=== PATIENT | female | born 1990 | race Caucasian/White ===

== ENCOUNTER 2018-07-20 15:35 | Emergency (ER) | payer OTHER ==
[2018-07-20 16:18] VITALS: BMI 26.9
[2018-07-20 17:19] LABS: SQUAMOUS EPITHIAL 5 /hpf (0-5); URINE BACTERIA OCC (<OCC); URINE BILIRUBIN NEGATIVE (NEGATIVE); URINE BLOOD NEGATIVE (NEGATIVE); URINE CLARITY Clear (Clear); URINE COLOR Yellow (YELLOW); URINE GLUCOSE (UA) NORMAL (Normal); URINE LEUKOCYTE ESTERASE NEG Leu/uL (Negative); URINE PROTEIN NEGATIVE (NEGATIVE); URINE UROBILINOGEN NORMAL mg/dL (0.2-1.0)
--- NOTE | 2018-07-20 18:07 | US ---
Date of service: 2018-07-20 17:14:17 Indication: decreased movement Comparison: None available Technique: OB limited/biophysical profile Findings: There is a single living fetus in cephalic presentation. Amniotic fluid volume is within normal limits. Anterior placenta. The placenta is not previa. There are no adnexal masses or cysts evident. Cervix length measures approximately 3.4 cm. The study was performed for the emergent evaluation of decreased movement, and the whole anatomic survey of the fetus was not performed. Measurements and calculations: Fetus has a composite sonographic age of 34 weeks 3 days. This calculation is based on the biparietal diameter, head circumference, abdominal circumference, and femur length. Estimated heart rate 142.5 beats per min. Estimated weight 2483 g. Biophysical profile: movements 2/2 breathing 2/2 tone 2/2 Amniotic fluid 2/2 Total score impression: 11/18 Impression: Live single intrauterine with estimated gestational age 34 weeks 3 days. heart rate 142.5 bpm. Biophysical profile of 8 out of 8.
--- NOTE | 2018-07-20 21:08 | OBHP ---
Datetime: 07/20/2018 16:10 IP Adm Impression: , intrauterine ; No Active Labor; Intact Membranes IP Admit Plan: Observation/Evaluation Admit Comment, IP Provider: Kristi Salcedo Birth Certificate Clerk: Mini [id number] 27 year old at 34.2 weeks by ultrasound presents to OB ED complaining of decreased m ovement for 2 days. Patient states her baby has been moving "slow" since yesterday. She denies vagina l bleeding, water leakage, and contractions. Patient notes that 2 days ago, she also had centralized upper abdominal pain and vomiting which felt like she ate bad food. However the pain and vomiting is fully resolved. Denies current pain, fevers, chills, nausea, vomiting, diarrhea. Today so far she augustine nk 4 cups of water. Patient admits to nausea and vomiting at the beginning of this at 3-4 months gestational age. It resolved with some rx medications. She has never felt this decreased movement and symp toms explained above until now. Patient denies trauma or doing anything different from her routine li fe recently. Patient sees Dr. Rodriguez for care. Last seen 2 weeks ago. Patient will be seen in 2 days. OB hx: --11/17/10 CS, 7 y/o female. Full term. CS due to umbilical cord placement around the baby. -- due to fetus with a mass last year at end of first trimester. 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 Menarche at 15 y/o, periods monthly lasting 4 days. PMHx: patient thinks she is anemic, otherwise denies any other known PMHx. PSHx: denies FHx: denies SocHx: Denies EtOH, tobacco, and illicit drug use now and in the past. Patient is currently unempl oyed. Meds: PNV, Iron, Vitamin C All: NKDA vitals and physical exam: see above 27 year old at 34.2 weeks by ultrasound with decreased movement -NST reactive -BPP pending -UA pending case discussed with Dr. Navid Manley PGY1 Pt seen and examined with Dr. Manley and agree with her findings and POC Pelvic Type - PN: Not Done Extremities - PN: Normal Abdomen - PN: Normal Back - PN: Not Done Breast - PN: Not Done Lungs - PN: Normal Heart - PN: Normal Thyroid - PN: Not Done Neurologic - PN: Not Done HEENT - PN: Not Done General - PN: Normal FHR - Baseline A Provider: 135 Comments, ACOG Physical Exam: gravid uterus with fundal height of 35 cm IP Hx Assessment: The History has been Reviewed and is Current EGA AdmitDate IP: 34.2 Vital Signs Provider: Reviewed; Within Normal Limits IP Chief Complaint: Decreased movement NICHD Variability Prov Fetus A: Moderate 6-25bpm NICHD Accel Fetus A IP Provider: 15X15 FHR Category Provider Fetus A: Category I NICHD Decel Fetus A IP Provider: None DTRs - PN: Not Done
--- NOTE | 2018-07-20 21:21 | OBDCSUM ---
Datetime: 07/20/2018 19:08 Discharged to, Provider: Home Follow up at, Provider: NATALYA MERINO Disch Instr Activity: Normal activity Disch Instr Diet: Regular Discharge Instructions, Provider: Routine instructions given Discharge Time: 07/20/2018 19:09 Follow up in weeks, Provider: 07/22/18 Disch Referrals: None Contraception discussed, Prov: Yes Disch Activity Restrictions: No exercising; No lifting; Minimize stair-climbing; No sexual activity; Nothing in vagina - [employer], tampons, douche Discharge Comment, Provider: 27 year old at 34.2 weeks by ultrasound with decreased mo vement -NST reactive. + movement noted and palpated -BPP 8of8 -UA Clean and negative -No contractions -Stable and Satisfactory condition -Discharge home with instructions to do Kick Count at home and will follow with her OB. Copies of US and UA given to bring to her clinic appointment. case discussed with Dr. Navid Manley PGY1 Pt seen and examined with Dr. Manley and agree with her findings and POC Comunicated with patient via deaf interpreter Matias with ID No. [id number] Discharge Diagnosis Prov Other: Decreased Movement Contraception after Delivery: Undecided
[2018-07-21 00:12] VITALS: BP 90/43; PULSE 100; RESP 20; TEMP 97.3; O2SAT 100
== END 2018-07-20 19:13 | disposition home or self-care (01) ==
LOC: C.EROB 15:35
DX: O36.8130 Decreased fetal movements, third trimester, not applicable or unspecified (principal); Z3A.34 34 weeks gestation of pregnancy

== ENCOUNTER 2018-07-23 14:10 | Outpatient (CLI) | payer OTHER | END 2018-07-23 14:11 | disposition home or self-care (01) | LOC: C.LAB 14:10 | DX: Z34.93 Encounter for supervision of normal pregnancy, unspecified, third trimester (principal) ==

== ENCOUNTER 2018-08-17 07:11 | Inpatient (IN) | payer MEDICAID, SELFPAY ==
[2018-08-17 07:20] VITALS: BMI 31.1
[2018-08-17] MEDS ORDERED: Lactated Ringer's 1,000 ML IV ONE (07:20)
[2018-08-17] MEDS ORDERED: cefOXitin IV 2 gm in Dextrose 2 GM/50 ML BAG IVPB ONE ×2 (07:21→07:52)
[2018-08-17] MEDS ORDERED: Sodium Citrate/Citric Acid 15 ml Sol PO ONE (07:21)
[2018-08-17] MEDS ORDERED: Sodium Citrate/Citric Acid 15 ml Sol ONE (07:51)
[2018-08-17 08:04] LABS: BASO % 0.3 % (0.0-2.0); EOS # 0.2 K/uL (0.0-0.7); EOS % 1.6 % (0.0-4.0); HEMOGLOBIN 10.4 g/dL (11.0-16.0); LYMPH # 2.3 K/uL (1.0-4.3); LYMPH % 20.3 % (20.0-40.0); MEAN CELL VOLUME 82.3 fL (81.0-99.0); MEAN CORPUSCULAR HGB CONC 32.8 g/dL (33.0-37.0); MEAN PLATELET VOLUME 9.2 fL (7.2-11.7); MONO # 0.9 K/uL (0.0-0.8); MONO % 8.1 % (0.0-10.0); NEUT # 7.8 K/uL (1.8-7.0); NEUT % 69.7 % (50.0-75.0); NRBC % 0.1 % (0.0-2.0); RBC 3.84 Mil/uL (3.80-5.20); RED CELL DISTRIBUTION WIDTH 18.4 % (11.5-14.5); WHITE BLOOD COUNT 11.1 K/uL (4.8-10.8)
[2018-08-17 08:15] LABS: SQUAMOUS EPITHIAL 11 /hpf (0-5); URINE BILIRUBIN NEGATIVE (NEGATIVE); URINE BLOOD NEGATIVE (NEGATIVE); URINE CLARITY Hazy (Clear); URINE COLOR Amber (YELLOW); URINE GLUCOSE (UA) NORMAL (Normal); URINE LEUKOCYTE ESTERASE NEG Leu/uL (Negative); URINE PROTEIN NEGATIVE (NEGATIVE); URINE UROBILINOGEN NORMAL mg/dL (0.2-1.0)
[2018-08-17] MEDS ORDERED: Oxytocin 20 units in LR 2,000 ML IV ONE (08:18)
[2018-08-17] MEDS ORDERED: Lactated Ringer's 1,000 ML IV SCH (08:30)
[2018-08-17 08:34] LABS: ALB/GLOB RATIO 1.1 (1.0-2.1); ALBUMIN 3.6 g/dL (3.5-5.0); ALT/SGPT 12 U/L (9-52); AST/SGOT 19 U/L (14-36); BLOOD UREA NITROGEN 4 mg/dL (7-17); CALCIUM 9.1 mg/dl (8.6-10.4); GFR NON-AFRICAN AMERICAN > 60
[2018-08-17] MEDS ORDERED: Morphine 1 mg/ml preservative-free Inj(Duramorph) ONE (08:34)
[2018-08-17] MEDS ORDERED: ePHEDrine 50 mg/ml Inj ONE (09:02)
[2018-08-17] MEDS ORDERED: Oxytocin 10 Units/ml Inj ONE ×2 (09:05→10:02)
--- NOTE | 2018-08-17 10:20 | OBDS ---
DELIVERY PERSONNEL Delivery Doctor: Mike Shoemaker DO Scrub Nurse: Minda Ribera OBT Conservation Worker: ISAI conde Anesthesiologist: Max Lawrence MD Resident: Dr Emery MATERNAL INFORMATION Delivery Anesthesia: Spinal Medications in Delivery: pitocin Estimated Blood Loss (ml): 600 Placenta Cultured: No Maternal Complications: None Provider Comments: Repeat LTC C/S with delivery of a viable Male from MARLYN position and witho ut complications. Apgars 9_9 in 1 and 5 minutes repectively and BW 7lbs, 6oz. Cord Blood and Cord Ph were obtzined and sent. Placenta eith 3 vessel cord was Manually delivered and discarded. EBL 600 mls Bilateral atubes and ovaries within normal limits. Pt and tolerated the procedure well and both left the OR in Stable and Satisfactory condit ion. Dr Soliman assisted throughout the procedure as well as Dr. Emery, 2nd [address] Resident[address] Dr. Hackett attended the LABOR SUMMARY EDC: 08/29/2018 00:00 No. Babies in Womb: 1 Attempted: No Labor Anesthesia: None LABOR INFORMATION Other Ripening Agents: n/a Oxytocin: N/A Group B Beta Strep: Negative Steroids Given: None Reason Steroids Not Administered: Not Applicable MEMBRANES Membranes Rupture Method: Artificial Rupture of Membranes: 08/17/2018 08:59 Length of Rupture (hrs): 0.02 Amniotic Fluid Color: Clear Amniotic Fluid Amount: Moderate STAGES OF LABOR Stage 3 hrs: 0 Stage 3 min: 2 CSECTION DELIVERY Primary Indication: previous c/s Other Primary Indication: early labor CSection Urgency: Non Elective CSection Incidence: Repeat Labor: Labor Elective: Nonelective CSection Incision: Lower Uterine Transverse BABY A INFORMATION Infant Delivery Date/Time: 08/17/2018 09:00 Method of Delivery: Born in Route : No : N/A Forceps: N/A Vacuum Extraction: N/A Shoulder Dystocia : No SHOULDER DYSTOCIA BABY A Infant Delivery Date/Time: 08/17/2018 09:00 PRESENTATION/POSITION BABY A Presentation: Cephalic Cephalic Presentation: Vertex Vertex Position: Left Occipital Anterior Breech Presentation: N/A PLACENTA INFORMATION BABY A Placenta Delivery Time : 08/17/2018 09:02 Placenta Method of Delivery: Manual Removal Placenta Status: Delivered SCORES BABY A Heart Rate 1 min: >100 bpm Resp Effort 1 min: Good Cry Reflex Irritability 1 min: Cough or Sneeze or Pulls Away Muscle Tone 1 min: Active Motion Color 1 min: Body Gorman, Extremities Blue Resuscitation Effort 1 min: Tactile Stimulation SCORE 1 MIN: 9 Heart Rate 5 min: >100 bpm Resp Effort 5 min: Good Cry Reflex Irritability 5 min: Cough or Sneeze or Pulls Away Muscle Tone 5 min: Active Motion Color 5 min: Body Gorman, Extremities Blue Resuscitation Effort 5 min: Tactile Stimulation SCORE 5 MIN: 9 INFANT INFORMATION BABY A Gestational Age at Delivery: 38.3 Gestational Status: Term Infant Outcome : Liveborn Infant Condition : Stable Sex: Male IDENTIFICATION/MEDS BABY A ID Band Number: [id number] ID Band Location: Left Leg; Left Arm Sensor Applied: Yes Sensor Number: [id number] Sensor Location : Cord Clamp Vitamin K Given : Not Given Erythromycin Given: Not Given WEIGHT/LENGTH BABY A Infant Birthweight (gms): 3335 Weight (lb): 7 Weight (oz): 6 Infant Length Inches: 19.50 Infant Length cms: 49.5 CORD INFORMATION BABY A No. Cord Vessels: 3 Nuchal Cord : N/A Cord Blood Taken: Yes Infant Suction: Mouth; Nose ASSESSMENT BABY A Infant Complications: None Physical Findings at Delivery: Within Normal Limits Respirations: Appears Normal Medical Services Manager/ALS Called : No Care By: DR Hackett Transferred To: Remains with Mother
--- NOTE | 2018-08-17 10:27 | OBADHP ---
Datetime: 08/17/2018 08:14 Admit Comment, IP Provider: Patient is a 28 year old at 38w3d by 17w5d US not consistent wit h LMP who presents to the unit for evaluation. Patient reports having abdominal tightness that is int ermittent in nature. Tightness is located at the top of her abdomen. She endorses +FM, denies VB or L OF. She goes to [facility] for care., and PNC record was reviewed. Issues: Anemia in - on Iron PO BID, Vitamin C 500mg PO BID OB Hx: 1. 2010 PLTCD indication unknown, female , 3.5kg, no complications 2. IAB 3. Current and uneventful except for Anemia. 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: LMP 12/10/17 [facility] 14 x regular x 4 days Denies fibroids, STIs, ovarian cysts Denies history of abnormal pap Allergies: NKDA Medications: Iron, Vitamin C, PNV Medical History: Anemia Surgical History: C/S x 1 Social History: Denies alcohol, tobacco, drug use Family History: Mother - healthy; Father - PE: See above A/P: Patient is a 28 year old at 38w3d, previous C/S x 1 in early labor -Admit to unit for repeat C/S -Admission labs: CBC, CMP, T+S, UA, RPR -Lactated Ringers -Diet: NPO -Cefoxitin 2gm, bicitra, pepcid preoperatively -Anesthesia and surgcial assist notified -Patient consented for C/S, does not desire BTL -Plan discussed with Dr Navid Emery DO PGY-2 Pt seen and examined with Dr. Emery and Medical Student Florence Silva MS III and their findings and POC was fully reviewed with them and agreed on. Pelvic Type - PN: Adequate Extremities - PN: Normal Abdomen - PN: Normal Back - PN: Normal Breast - PN: Not Done Lungs - PN: Normal Heart - PN: Normal Thyroid - PN: Normal Neurologic - PN: Normal HEENT - PN: Normal General - PN: Normal Presentation-Admit: Vertex FHR - Baseline A Provider: 140 Membranes, Provider: Intact Contraction Comments Provider: q3-6 min Comments, ACOG Physical Exam: Gen: AAOx3 CV: RRR Lungs: CTA B/L Abd: Soft, Gravid, Fundal height 39cm Ext: No clubbing, cyanosis, edema, no calf tenderness Gestation - Est Wks by US: 38.2 IP Hx Assessment: The History has been Reviewed and is Current Vital Signs Provider: Reviewed; Within Normal Limits IP Chief Complaint: Uterine contractions NICHD Variability Prov Fetus A: Moderate 6-25bpm NICHD Accel Fetus A IP Provider: 15X15 FHR Category Provider Fetus A: Category I NICHD Decel Fetus A IP Provider: None Genitourinary Exam: Normal DTRs - PN: Normal EGA AdmitDate IP: 38.2 IP Adm Impression: Term, intrauterine IP Admit Plan: Admit to unit; Initiate Section protocol
--- NOTE | 2018-08-17 10:51 | OBHP ---
Datetime: 08/17/2018 08:14 IP Adm Impression: Term, intrauterine IP Admit Plan: Admit to unit; Initiate Section protocol Admit Comment, IP Provider: Patient is a 28 year old at 38w3d by 17w5d US not consistent wit h LMP who presents to the unit for evaluation. Patient reports having abdominal tightness that is int ermittent in nature. Tightness is located at the top of her abdomen. She endorses +FM, denies VB or L OF. She goes to [facility] for care., and PNC record was reviewed. Issues: Anemia in - on Iron PO BID, Vitamin C 500mg PO BID OB Hx: . 2010 PLTCD indication unknown, female , 3.5kg, no complications 2. IAB 3. Current and uneventful except for Anemia. 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 [facility] 14 x regular x 4 days Denies fibroids, STIs, ovarian cysts Denies history of abnormal pap Allergies: NKDA Medications: Iron, Vitamin C, PNV Medical History: Anemia Surgical History: C/S x 1 Social History: Denies alcohol, tobacco, drug use Family History: Mother - healthy; Father - PE: See above A/P: Patient is a 28 year old at 38w3d, previous C/S x 1 in early labor -Admit to unit for repeat C/S -Admission labs: CBC, CMP, T+S, UA, RPR -Lactated Ringers -Diet: NPO -Cefoxitin 2gm, bicitra, pepcid preoperatively -Anesthesia and surgcial assist notified -Patient consented for C/S, does not desire BTL -Plan discussed with Dr Navid Emery DO PGY-2 Pt seen and examined with Dr. Emery and Medical Student Florence Silva MS III and their findings and POC was fully reviewed with them and agreed on. Pelvic Type - PN: Adequate Extremities - PN: Normal Abdomen - PN: Normal Back - PN: Normal Breast - PN: Not Done Lungs - PN: Normal Heart - PN: Normal Thyroid - PN: Normal Neurologic - PN: Normal HEENT - PN: Normal General - PN: Normal Presentation-Admit: Vertex FHR - Baseline A Provider: 140 Membranes, Provider: Intact Contraction Comments Provider: q3-6 min Comments, ACOG Physical Exam: Gen: AAOx3 CV: RRR Lungs: CTA B/L Abd: Soft, Gravid, Fundal height 39cm Ext: No clubbing, cyanosis, edema, no calf tenderness Gestation - Est Wks by US: 38.2 IP Hx Assessment: The History has been Reviewed and is Current EGA AdmitDate IP: 38.2 Vital Signs Provider: Reviewed; Within Normal Limits IP Indication for Induction: Not Applicable IP Chief Complaint: Uterine contractions NICHD Variability Prov Fetus A: Moderate 6-25bpm NICHD Accel Fetus A IP Provider: 15X15 FHR Category Provider Fetus A: Category I NICHD Decel Fetus A IP Provider: None Genitourinary Exam: Normal DTRs - PN: Normal (Annotations: Data stored by CPN on behalf of user)
[2018-08-17] MEDS: Prenatal Multivit/Folic Acid/Iron Tab PO SCH (17:21)
[2018-08-17] MEDS: Simethicone 80 mg Chewtab PO SCH ×3 (17:21→21:28)
[2018-08-18 07:46] LABS: HEMOGLOBIN 9.1 g/dL (11.0-16.0); MEAN CELL VOLUME 82.2 fL (81.0-99.0); MEAN CORPUSCULAR HEMOGLOBIN 27.3 pg (27.0-31.0); MEAN CORPUSCULAR HGB CONC 33.2 g/dL (33.0-37.0); MEAN PLATELET VOLUME 8.9 fL (7.2-11.7); RBC 3.32 Mil/uL (3.80-5.20); RED CELL DISTRIBUTION WIDTH 17.9 % (11.5-14.5); WHITE BLOOD COUNT 16.4 K/uL (4.8-10.8)
[2018-08-18] MEDS: Simethicone 80 mg Chewtab PO SCH ×4 (09:12→22:50)
[2018-08-18] MEDS: Prenatal Multivit/Folic Acid/Iron Tab PO SCH (09:12)
[2018-08-18] MEDS ORDERED: Bisacodyl 5mg EC Tab PO ONE (09:49)
[2018-08-18] MEDS: Oxycodone/Acetaminophen 5/325 mg Tab PO PRN ×2 (12:54→17:02)
--- NOTE | 2018-08-18 18:05 | OBPPN ---
Datetime: 08/18/2018 12:04 PP Pain Prov: Within normal limits PP Nausea Prov: Denies PP Flatus Prov: No PP BM Prov: No PP Breasts Prov: Not Done PP Heart Prov: Normal PP Lungs Prov: Normal PP Abdomen/Uterus Prov: Normal PP Lochia Prov: Normal PP Vulva/Perineum Prov: Normal PP CVA Tenderness Prov: Normal PP Extremities Prov: Normal PP C/S Incision Prov: Normal PP Progress Prov: Normal PP Comments Phys Exam Prov: Fundus firm, non-tender and below umbiicus Incision clean, dry and intact PP Impression Prov: Normal progression PP Plan Prov: Continue present management PP Progress Note Prov: Pt seen and examined at bedside. No complaints over night per nurse. Pt repor ts abdominal pain of 4/10 Exacerbated by walking. Reports urination, but denies flatus and BM. She re ports minimal lochia, stating that the nurse changed her pad twice since last night. Pt is attempting 3-4 time a day for 10-15 minutes, but states that she has been mostly breast feeding. Pt is eating well and drinking 1-2 pitchers of water per day. Denies fever, chills, RODRIGUEZ, vision flanagan es, CP, SOB, abd pain, and LE swelling. Vitals:Stable: T: 97 BP: 91/63 HR: 88 RR:18 PE General: NAD, Well appearing Cardiac: Nml S1,S2, No murmers Lungs: CTL, No wheezes,rales, or rhonci Abd: Soft, Lower abdomen tender to palpation, Fundal height: 2 fingers below the umbillicus, Incis ion: Well aproximated, dry, clean and intact. No drainage. LE:No edema bilat, 2+ pulses intact bilat A/P Continue current medication management Pain:continue ibuprofen and percocet as needed Anemia: continue taking Iron as prescribed Pt desires circumciison for her baby, informed consent signed after discussion of procedure, risks and possible complications, all of her questions were answered to her full satisfaction and requeste d to proceed. Encourage breast feeding, ambulation, and hydration Stable and Satisfactory condition and recovery Advance care Florence Oyewole OMS, III Pt seen and examined with Med Student Oyewole and all of her findings and POC were fully discussed with her and agreed with. IP PP Procedures: None
[2018-08-19 08:34] LABS: BASO # 0.1 K/uL (0.0-0.2); BASO % 0.4 % (0.0-2.0); EOS # 0.2 K/uL (0.0-0.7); EOS % 1.9 % (0.0-4.0); HEMOGLOBIN 9.2 g/dL (11.0-16.0); LYMPH # 2.3 K/uL (1.0-4.3); MEAN CELL VOLUME 83.8 fL (81.0-99.0); MEAN CORPUSCULAR HGB CONC 32.2 g/dL (33.0-37.0); MEAN PLATELET VOLUME 8.6 fL (7.2-11.7); NEUT # 9.3 K/uL (1.8-7.0); NEUT % 71.7 % (50.0-75.0); RBC 3.42 Mil/uL (3.80-5.20); RED CELL DISTRIBUTION WIDTH 17.9 % (11.5-14.5)
[2018-08-19] MEDS: Simethicone 80 mg Chewtab PO SCH ×4 (10:31→22:21)
[2018-08-19] MEDS: Prenatal Multivit/Folic Acid/Iron Tab PO SCH (10:31)
--- NOTE | 2018-08-19 15:16 | OBPPN ---
Datetime: 08/19/2018 11:04 PP Pain Prov: Within normal limits PP Nausea Prov: Denies PP Flatus Prov: Yes PP BM Prov: Yes PP Heart Prov: Normal PP Lungs Prov: Normal PP Abdomen/Uterus Prov: Normal PP Lochia Prov: Normal PP Vulva/Perineum Prov: Not Done PP CVA Tenderness Prov: Normal PP Extremities Prov: Normal PP C/S Incision Prov: Normal PP Progress Prov: Normal PP Comments Phys Exam Prov: incision site clean, dry, intact fundal heigh 2 fingers below umbilici PP Impression Prov: Normal progression PP Plan Prov: Continue present management PP Progress Note Prov: Pt seen and examined at bedside. No overnight events reported. Pt reports 5/1 0 abdominal pain on ambulation. Reports urination, flatulance and bowel movement. Patient reports m inimal vaginal bleeding, requring approximately 1 pad in 24 hours. Pt is still attempting breastfeedi ng; however reports difficulty latching by the baby. Pt is attempting 3-4 time a day fo r 10-15 minutes, but states that she has been mostly breast feeding. Pt is eating well and drinking 3 -4 pitchers per day. Denies fever, chills, RODRIGUEZ, vision changes, CP, SOB, abd pain, and LE swelling. Vitals:Stable: T: 97.4 BP: 122/89 HR: 76 RR:18 PE General: NAD, Well appearing Cardiac: Nml S1,S2, No murmers Lungs: CTL, No wheezes,rales, or rhonci Abd: Soft, Lower abdomen tender to palpation, Fundal height: 2 fingers below the umbillicus, Incis ion: Well aproximated, dry, clean and intact. No drainage. LE:No edema bilat, 2+ pulses intact bilat A/P 27 F , POD # 2 s/p CS Continue current medication management Pain:continue ibuprofen and percocet as needed Anemia: continue taking Iron as prescribed Encourage breast feeding, ambulation, and hydration Stable and Satisfactory condition and recovery Advance care Vital Signs Provider PP: Reviewed; Within Normal Limits
[2018-08-19] MEDS: Oxycodone/Acetaminophen 5/325 mg Tab PO PRN (20:12)
[2018-08-20] MEDS: Oxycodone/Acetaminophen 5/325 mg Tab PO PRN (08:10)
[2018-08-20 09:45] VITALS: PULSE 70; RESP 18; TEMP 98.5; O2SAT 98
[2018-08-20] MEDS: Prenatal Multivit/Folic Acid/Iron Tab PO SCH (10:19)
[2018-08-20] MEDS: Simethicone 80 mg Chewtab PO SCH (10:19)
--- NOTE | 2018-08-20 17:12 | OBPPN ---
Datetime: 08/20/2018 08:55 PP Pain Prov: Within normal limits PP Nausea Prov: Denies PP Flatus Prov: Yes PP BM Prov: Yes PP BM Prov comment: Last BM: last night (non-bloody) PP Breasts Prov: Normal PP Heart Prov: Normal PP Lungs Prov: Normal PP Abdomen/Uterus Prov: Normal PP Lochia Prov: Normal PP Vulva/Perineum Prov: Normal PP CVA Tenderness Prov: Normal PP Extremities Prov: Normal PP C/S Incision Prov: Normal PP Progress Prov: Normal PP Impression Prov: Normal progression PP Plan Prov: Continue present management; Discharge PP Progress Note Prov: Patient seen and examined at bedside. Per nursing no acute events overnight. Interpretation services used via videotranslation. Pain is reported as 2/10 at rest, up to 8-10/10 wi th ambulation. Patient states that pain medication, Percocet, brings ambulatory pain to 1-2/10. She s tates she has been walking around the nurses station "every few hours without difficulty." Patient ad mits "minor vaginal bleeding" overnight, necessitating 2-3 pad changes. Admits voiding without diffic ulty and passing gas. Her last BM was overnight. She states she has been tolerating regular diet with out difficulty, and denies any nausea/vomiting. Admits drinking "4-5 pitchers of water daily." She ad mits was difficult yesterday, but has been pumping breastmilk easily this AM. Denies fe jose, chills, headache, vision changes, chest pain, or shortness of breath. VS (8AM; 08/20/18): 120/89, 70, 98.5, 18, 98% Gen: NAD CV: RRR Lungs: CTA B/L Abd: soft, dressing c/d/i, fundus: 2 fingerbreadth below umbilicus; Incision: well approximated, d /c/i. No drainage appreciated LE: No edema b/l; 2+ pulses intact bilaterally Ext: No clubbing, cyanosis, edema A/P 27 F ; POD#3 s/p - Patient for discharge today - She is to follow up with her CHEMICAL EQUIPMENT REPAIRER within one week for incision check - Make an appointment with baby's taping machine operator within one week - Pelvic rest x 6-8 weeks - no sex, no tampons, no douching - please continue the following medications: vitamins daily and feosol 325mg by mouth three times daily (iron supplement) Take Motrin (mild to moderate) and Percocet (Severe) for pain as needed - with the addition of col jani to help you move your bowels. Percocet and Iron can have a constipating effect on the bowel. - IF having fevers, heavy vaginal bleeding, severe abdominal pain, please return to the emergency room. Regulo Sheth PGY-3 Discussed wMalena LOPEZ, attending Pt seen and examined with Dr. Sheth and agreed with all of his findings and POC IP PP Procedures: None Vital Signs Provider PP: Reviewed; Within Normal Limits
--- NOTE | 2018-08-20 17:14 | OBDCSUM ---
Datetime: 08/20/2018 13:02 Discharged to, Provider: Home Follow up at, Provider: RAYO Disch Instr Activity: Normal activity Disch Instr Diet: Regular Discharge Diet restrict Prov: none Discharge Instructions, Provider: Routine instructions given Discharge Diagnosis, Provider: Term Delivered Discharge Time: 08/20/2018 13:30 Follow up in weeks, Provider: Friday, August 24, 2018 Disch Referrals: None Contraception discussed, Prov: Yes Disch Activity Restrictions: No exercising; No lifting; No driving; Minimize walking; Minimize stair -climbing; No sexual activity; Nothing in vagina - [place], tampons, douche Discharge Comment, Provider: Patient seen and examined at bedside. Per nursing no acute events overn ight. Interpretation services used via videotranslation. Pain is reported as 2/10 at rest, up to 8-10 /10 with ambulation. Patient states that pain medication, Percocet, brings ambulatory pain to 1-2/10. She states she has been walking around the nurses station "every few hours without difficulty." Carmelita ent admits "minor vaginal bleeding" overnight, necessitating 2-3 pad changes. Admits voiding without difficulty and passing gas. Her last BM was overnight. She states she has been tolerating regular t without difficulty, and denies any nausea/vomiting. Admits drinking "4-5 pitchers of water daily." She admits was difficult yesterday, but has been pumping breastmilk easily this AM. Den ies fever, chills, headache, vision changes, chest pain, or shortness of breath. VS (8AM; 08/20/18): 120/89, 70, 98.5, 18, 98% Gen: NAD CV: RRR Lungs: CTA B/L Abd: soft, dressing c/d/i, fundus: 2 fingerbreadth below umbilicus; Incision: well approximated, d /c/i. No drainage appreciated LE: No edema b/l; 2+ pulses intact bilaterally Ext: No clubbing, cyanosis, edema A/P 27 F ; POD#3 s/p - Patient for discharge today - She is to follow up with her PRINT LINE OPERATOR within one week for incision check - Make an appointment with baby's credit verification clerk within one week - Pelvic rest x 6-8 weeks - no sex, no tampons, no douching - please continue the following medications: vitamins daily and feosol 325mg by mouth three times daily (iron supplement) Take Motrin (mild to moderate) and Percocet (Severe) for pain as needed - with the addition of col jani to help you move your bowels. Percocet and Iron can have a constipating effect on the bowel. - IF having fevers, heavy vaginal bleeding, severe abdominal pain, please return to the emergency room. Regulo Sheth PGY-3 Discussed wMalena LOPEZ, attending Pt seen and examined with Dr. Sheth and agreed with all of his findings and POC Contraception after Delivery: Undecided
[2018-08-20 19:34] VITALS: BP 120/87
== END 2018-08-20 13:30 | disposition home or self-care (01) | DRG 540 ==
LOC: C.EROB 07:11 → C.4D 07:42 → C.4M 13:26
PROVIDERS: ADMIT Obstetrics & Gynecology; ATTEND Obstetrics & Gynecology
PROC: 10D00Z1 Extraction of Products of Conception, Low, Open Approach (ICD-10-PCS; principal; 2018-08-17)
DX: O34.211 Maternal care for low transverse scar from previous cesarean delivery (principal); O99.02 Anemia complicating childbirth; Z3A.38 38 weeks gestation of pregnancy; Z37.0 Single live birth